=== PATIENT | female | born 1995 | race Caucasian/White ===

== ENCOUNTER 2018-06-13 21:11 | Emergency (ER) | payer OTHER ==
[2018-06-13 21:31] VITALS: BP 115/72; PULSE 89; TEMP 99.5; BMI 21.7
--- NOTE | 2018-06-13 21:31 | PDOC ---
Rapid Medical Evaluation Time Seen by Provider: 06/13/18 21:25 Medical Evaluation: 06/13/18 21:25 I have performed a brief in-person evaluation of this patient. The patient presents with a chief complaint of:R eyelid redness and swelling x 3 days, no trauma/bite Pertinent physical exam findings: Sty to lower lid of R eye w/ purulent drainage , erythema extending to criselda-orbital area I have ordered the following:nothing The patient will proceed to the ED for further evaluation. Discharge Disposition - Diagnosis Sty Qualifiers: Laterality: right Eyelid: lower Qualified Code(s): H00.012 - Hordeolum externum right lower eyelid - Referrals - Patient Instructions - Post Discharge Activity
--- NOTE | 2018-06-13 21:49 | PDOC ---
History of Present Illness - General Chief Complaint: Eye Problem Stated Complaint: EYE PROBLEM Time Seen by Provider: 06/13/18 21:25 History Source: Patient Exam Limitations: No Limitations - History of Present Illness Initial Comments: 06/13/18 21:41 23 yr female no pmhx with stye to right lower lid for 3 days draining today now redness under the eyelid. no fever no eye pain or vision change. Pt is 34 weeks no abd pain. 06/13/18 22:22 Past History - Past Medical History Allergies/Adverse Reactions: Allergies Allergy/AdvReac Type Severity Reaction Status Date / Time No Known Allergies Allergy Verified 06/13/18 21:28 Home Medications: Ambulatory Orders Cephalexin [Keflex] 500 mg PO BID #14 capsule 06/13/18 Docosahexanoic Acid [ Dha] 200 mg PO DAILY 06/13/18 Erythromycin 0.5% Eye Ointment [Erythromycin 0.5% Eye Ointment -] 1 applic OS QID #1 tube 06/13/18 COPD: No Other medical history: Pt denies - Suicide/Smoking/Psychosocial Hx Smoking History: Never smoked Have you smoked in the past 12 months: No Information on smoking cessation initiated: No Hx Alcohol Use: No Drug/Substance Use Hx: No Substance Use Type: None Review of Systems - Review of Systems Able to Perform ROS?: Yes Is the patient limited Frisian proficient: Yes HEENTM: Yes: Symptoms Reported *Physical Exam - Vital Signs Last Vital Signs Temp Pulse Resp BP Pulse Ox 99.5 F 89 18 115/72 98 06/13/18 21:29 06/13/18 21:29 06/13/18 21:29 06/13/18 21:29 06/13/18 21:29 - Physical Exam General Appearance: Yes: Nourished, Appropriately Dressed HEENT: positive: EOMI, EARLENE, TMs Normal, Pharynx Normal, Other (right lower lid with stye draining pus, surrounding erythema under the eye , neg periorbital tenderness or swelling ) Medical Decision Making - Medical Decision Making 06/13/18 21:42 cc: stye to lower lid will give po antibiotics and erythromycin ointment follow up in 48hrs for re-evaluation frequent warm compresses to the lid pt agrees with plan dc inst given via spanish speaking babysitter 06/13/18 21:43 *DC/Admit/Observation/Transfer Diagnosis at time of Disposition: Sty Qualifiers: Laterality: right Eyelid: lower Qualified Code(s): H00.012 - Hordeolum externum right lower eyelid - Discharge Dispostion Disposition: HOME Condition at time of disposition: Good - Prescriptions Prescriptions: Cephalexin [Keflex] 500 mg PO BID #14 capsule Erythromycin 0.5% Eye Ointment [Erythromycin 0.5% Eye Ointment -] 1 applic OS QID #1 tube - Referrals Referrals: Chris Cardona MD [Staff Physician] - - Patient Instructions Printed Discharge Instructions: DI for Hordeolum Additional Instructions: warm compresses to the eyelid every 2hrs for 15 minutes apply the eye ointment four times a day take the keflex as directed for 7 days return in 2 days on Saturday for a follow up visit compresas tibias en el prpado cada 2 horas darline 15 minutos aplicar la crema para los ojos cuatro veces al da cydney el Keflex jono se indica darline 7 wilkinson regresar en 2 wilkinson el silva para jyoti visita de seguimiento Print Language: BELIZEAN - Post Discharge Activity
[2018-06-13] MEDS ORDERED: ERYTHROMYCIN 0.5% OPHTHALMIC OINTMENT 3.5 GM TUBE OS ONE (21:52)
[2018-06-13] MEDS ORDERED: ERYTHROMYCIN 0.5% OPHTHALMIC OINTMENT 3.5 GM TUBE ONE (21:56)
== END 2018-06-13 22:29 | disposition home or self-care (01) ==
LOC: JERFT 21:11
DX: H00.012 Hordeolum externum right lower eyelid (principal)
CPT/HCPCS: 99281-25

== ENCOUNTER 2018-06-15 18:32 | Emergency (ER) | payer OTHER ==
[2018-06-15 18:37] VITALS: BP 109/69; PULSE 99; TEMP 98; BMI 20.5
--- NOTE | 2018-06-15 18:49 | PDOC ---
History of Present Illness - General Chief Complaint: Eye Problem Stated Complaint: EYE PAIN Time Seen by Provider: 06/15/18 18:38 History Source: Patient Exam Limitations: No Limitations - History of Present Illness Initial Comments: 06/15/18 18:44 23 yr female here for wound check of stye to the right lower lid. pt taking keflex and using erythromycin ointment. pt states symptoms have improved. Past History - Past Medical History Allergies/Adverse Reactions: Allergies Allergy/AdvReac Type Severity Reaction Status Date / Time No Known Allergies Allergy Verified 06/15/18 18:37 Home Medications: Ambulatory Orders Cephalexin [Keflex] 500 mg PO BID #14 capsule 06/13/18 Docosahexanoic Acid [ Dha] 200 mg PO DAILY 06/13/18 Erythromycin 0.5% Eye Ointment [Erythromycin 0.5% Eye Ointment -] 1 applic OS QID #1 tube 06/13/18 COPD: No - Suicide/Smoking/Psychosocial Hx Smoking History: Never smoked Have you smoked in the past 12 months: No Hx Alcohol Use: No Drug/Substance Use Hx: No Substance Use Type: None Review of Systems - Review of Systems Able to Perform ROS?: Yes Is the patient limited Tamazight proficient: Yes Constitutional: No: Symptoms Reported HEENTM: Yes: See HPI *Physical Exam - Vital Signs Last Vital Signs Temp Pulse Resp BP Pulse Ox 98 F 99 H 18 109/69 99 06/15/18 18:34 06/15/18 18:34 06/15/18 18:34 06/15/18 18:34 06/15/18 18:34 - Physical Exam General Appearance: Yes: Nourished, Appropriately Dressed HEENT: positive: EOMI, EARLENE, Other (right lower lid with small pimple to the inner corner lower lid, well healed no redness no drainage) Medical Decision Making - Medical Decision Making 06/15/18 18:47 cc: improving periorbital cellulitus with stye no fever no abd pain tolerating meds well dc home continue the plan of care *DC/Admit/Observation/Transfer Diagnosis at time of Disposition: Sty Qualifiers: Laterality: right Eyelid: lower Qualified Code(s): H00.012 - Hordeolum externum right lower eyelid - Discharge Dispostion Disposition: HOME Condition at time of disposition: Good - Referrals - Patient Instructions Additional Instructions: continue the medication as directed, finish all the medication continue warm compresses to the area, the area is looking much better return to ER as needed continuar la medicacin segn las indicaciones, terminar toda la medicacin Continuar con compresas tibias en el nadine, el nadine se ve mucho mejor regresar a ER segn sea necesario - Post Discharge Activity
== END 2018-06-15 18:54 | disposition home or self-care (01) ==
LOC: JERFT 18:32
DX: H00.012 Hordeolum externum right lower eyelid (principal)
CPT/HCPCS: 99281-25

== ENCOUNTER 2018-07-11 18:25 | Inpatient (IN) | payer OTHER ==
[2018-07-11 20:30] LABS: INR 0.9 (0.83-1.09); PROTHROMBIN TIME (PATIENT) 10.6 SEC (9.7-13.0)
[2018-07-11 20:33] LABS: ACTIVATED PTT 30.2 SECONDS (25.2-36.5)
[2018-07-11 20:38] LABS: ANION GAP 9 MMOL/L (8-16); BLOOD UREA NITROGEN 9 mg/dL (7-18); CALCIUM 8.8 mg/dL (8.5-10.1); CHLORIDE 107 mmol/L (98-107); CO2 21 mmol/L (21-32); CREATININE 0.4 mg/dL (0.55-1.3); GLUCOSE,RANDOM 146 mg/dL (74-106); POTASSIUM 3.5 mmol/L (3.5-5.1); SODIUM 137 mmol/L (136-145)
[2018-07-11 21:07] VITALS: BMI 24.0
[2018-07-11] MEDS ORDERED: ELECTROLYTE-148 SOLN 500 ML IV ONE (21:50)
[2018-07-11] MEDS ORDERED: BUPIVACAINE HCL/PF 0.5% (5MG/ML) 10 ML VIAL ONE (21:56)
[2018-07-11 22:00] LABS: BASO % 0.2 % (0-2.0); EOS % 0.6 % (0-4.5); HEMATOCRIT 32.8 % (32.4-45.2); HEMOGLOBIN 11.3 GM/dL (10.7-15.3); LYMPH % 23.6 % (8-40); MCH 32.7 pg (25.7-33.7); MCHC 34.5 g/dl (32.0-36.0); MEAN CELL VOLUME 94.8 fl (80-96); MEAN PLT VOLUME 11.6 fl (7.5-11.1); NEUT % 70.6 % (42.8-82.8); PLATELET COUNT 157 K/MM3 (134-434); RBC 3.46 M/mm3 (3.60-5.2); RDW 13.4 % (11.6-15.6); WHITE BLOOD COUNT 7.7 K/mm3 (4.0-10.0)
[2018-07-11] MEDS ORDERED: FENTANYL/BUPIVACAINE/NS/PF - PCEA - 50 ML DISP.SYRIN EP ONE (22:13)
[2018-07-11] MEDS ORDERED: NALOXONE HCL 0.4 MG/ML VIAL IVPUSH PRN (22:18)
[2018-07-11] MEDS ORDERED: ELECTROLYTE-148 SOLN 1,000 ML IV SCH (22:20)
[2018-07-11] MEDS ORDERED: FENTANYL/BUPIVACAINE/NS/PF - PCEA - 50 ML DISP.SYRIN EP SCH (22:30)
--- NOTE | 2018-07-11 23:33 | PN ---
Progress Note (SOAP) - Subjective History of Present Illness: doing well, now with epidural, ctx q 2-3 mins - Current Medications Current Medications: Active Medications Fentanyl/Bupivacaine/Sodium Chlor (Bupivicaine 0.125%/Fentanyl 2mcg/Ml Pcea) 0 ml EP ASDIR [facility]; Protocol Last Admin: 07/11/18 22:15 Dose: 50 ml Parenteral Electrolytes (Plasma-Lyte 148 -) 1,000 mls @ 125 mls/hr IV ASDIR ANGUS Last Admin: 07/11/18 20:30 Dose: 125 mls/hr Naloxone HCl (Narcan -) 0.4 mg IVPUSH PRN PRN PRN Reason: Sedation - Objective Vital Signs: Vital Signs Temperature 98.2 F 07/11/18 22:00 Pulse Rate 80 07/11/18 22:45 Respiratory Rate 18 07/11/18 22:45 Blood Pressure 117/75 07/11/18 22:45 O2 Sat by Pulse Oximetry (%) 98 07/11/18 22:45 Constitutional: Yes: Well Nourished Eyes: Yes: WNL HENT: Yes: WNL Neck: Yes: WNL Cardiovascular: Yes: WNL Respiratory: Yes: WNL Gastrointestinal: Yes: WNL ...Rectal Exam: Yes: WNL Labs Lab Results: CBC, BMP 07/11/18 19:45 07/11/18 19:45 Assessment/Plan as above 4-5 cm/90/0 station cat 1 continue care
[2018-07-12] MEDS ORDERED: OXYTOCIN 20 UNITS in 0.9% NS 20 UNIT/1,000 ML INFUS.BAG IV ONE ×2 (01:10→03:43)
--- NOTE | 2018-07-12 02:04 | HP ---
Admitting History and Physical - Admission Chief Complaint: labor pains History of Present Illness: as above--comes at 37 weeks with srom today, start of ctx History Source: Patient - Past Medical History MEDIA INTERN: No: Alzheimer's, CVA, Dementia, Migraine, Multiple Sclerosis, Peripheral Neuropathy, Parkinson's, Seizure, Syncope, TIA, Vertigo, Other Cardiovascular: No: AFIB, Aneurysm, Aortic Insufficiency, Aortic Stenosis, CAD, CHF, Deep Vein Thrombosis, HTN, Hyperlipdemia, VA, Mitral Insufficiency, Mitral Stenosis, Murmur, Pulmonary Hypertension, Other Pulmonary: No: Asthma, Bronchitis, Cancer, COPD, O2 Dependent, Pneumonia, Previously Intubated, Pulmonary Embolus, Pulmonary Fibrosis, Sleep Apnea, Other Gastrointestinal: No: Ascites, Cancer, Constipation, Crohn's Disease, Diverticulitis, Diverticulosis, Esophageal Varices, Gastritis, GERD, GI Bleed, Hemorrhoids, Hiatal Hernia, Inflamatory Bowel Disease, Irritable Bowel Disease, Pancreatitis, Peptic Ulcer Disease, Ulcerative Colitis, Other Hepatobiliary: No: Cirrhosis, Cholelithiasis, Cholecystitis, Choledocholithiasis , Hepatitis A, Hepatitis B, Hepatitis C, Other Renal/: No: Renal Failure, Renal Inusuff, BPH, Cancer, Hematuria, Hemodialysis , Neurogenic Bladder, Renal Calculi, UTI, Other Reproductive: No: Ectopic , Endometriosis, Fibroids, PID, Polycystic Ovary Syndrome, Postmenopausal, Other ...: 1 ...Para: 0 Heme/Onc: No: Anemia, B12 Deficiency, Bleeding Disorder, Cancer, Current Chemotherapy, Current Radiation Therapy, Hemochromatosis, Hypercoaguable State, Myeloproliferative Synd, Sickle Cell Disease, Sickle Cell Trait, Thrombocytopenia, Other Infectious Disease: No: AIDS, C-Diff, Herpes Zoster, HIV, MRSA, STD's, Tuberculosis, VREF, Other - Smoking History Smoking history: Never smoked Have you smoked in the past 12 months: No - Alcohol/Substance Use Hx Alcohol Use: No Home Medications - Allergies Allergies/Adverse Reactions: Allergies Allergy/AdvReac Type Severity Reaction Status Date / Time No Known Allergies Allergy Verified 06/15/18 18:37 - Home Medications Home Medications: Ambulatory Orders Cephalexin [Keflex] 500 mg PO BID #14 capsule 06/13/18 Docosahexanoic Acid [ Dha] 200 mg PO DAILY 06/13/18 Erythromycin 0.5% Eye Ointment [Erythromycin 0.5% Eye Ointment -] 1 applic OS QID #1 tube 06/13/18 Review of Systems - Review of Systems Constitutional: reports: No Symptoms Eyes: reports: No Symptoms HENT: reports: No Symptoms Neck: reports: No Symptoms Cardiovascular: reports: No Symptoms Respiratory: reports: No Symptoms Gastrointestinal: reports: No Symptoms Genitourinary: reports: No Symptoms Musculoskeletal: reports: No Symptoms Integumentary: reports: No Symptoms Neurological: reports: No Symptoms Endocrine: reports: No Symptoms Hematology/Lymphatic: reports: No Symptoms Psychiatric: reports: No Symptoms Physical Examination Vital Signs: Vital Signs Temperature 98.6 F 07/12/18 00:00 Pulse Rate 77 07/12/18 01:15 Respiratory Rate 18 07/12/18 01:15 Blood Pressure 117/75 07/12/18 01:15 O2 Sat by Pulse Oximetry (%) 97 07/12/18 01:15 Constitutional: Yes: Well Nourished Eyes: Yes: WNL HENT: Yes: WNL Neck: Yes: WNL Cardiovascular: Yes: WNL Respiratory: Yes: WNL Gastrointestinal: Yes: WNL ...Rectal Exam: Yes: WNL, Other Renal/: Yes: WNL Breast(s): Yes: WNL Extremities: Yes: WNL Integumentary: Yes: WNL Neurological: Yes: WNL Labs: CBC, BMP 07/11/18 19:45 07/11/18 19:45 Assessment/Plan as above pain meds prn will follow labor
[2018-07-12] MEDS ORDERED: BISACODYL 10 MG SUPP.RECT RC PRN (02:24)
[2018-07-12] MEDS ORDERED: BENZOCAINE 28 GM HEMORRHOIDAL OINTMENT TP PRN (02:24)
[2018-07-12] MEDS ORDERED: BENZOCAINE 20% 57 GM BOTTLE TP PRN (02:24)
[2018-07-12] MEDS ORDERED: METHYLERGONOVINE MALEATE 0.2 MG/1 ML AMP IM PRN (02:24)
[2018-07-12] MEDS ORDERED: WITCH HAZEL 50% (TUCKS) 40 PAD/JAR PAD TP PRN (02:24)
[2018-07-12] MEDS ORDERED: OXYTOCIN 20 UNITS in 0.9% NS 20 UNIT/1,000 ML INFUS.BAG IV SCH (02:30)
[2018-07-12] MEDS: IBUPROFEN 600 MG TABLET (FP) PO PRN ×2 (16:26→21:24)
[2018-07-12] MEDS: ACETAMINOPHEN 325 MG TABLET (FP) PO PRN ×2 (16:27→21:24)
[2018-07-13 07:25] LABS: BASO % 0.4 % (0-2.0); EOS % 1.1 % (0-4.5); HEMATOCRIT 33.3 % (32.4-45.2); HEMOGLOBIN 11.5 GM/dL (10.7-15.3); LYMPH % 23.3 % (8-40); MCH 32.7 pg (25.7-33.7); MCHC 34.5 g/dl (32.0-36.0); MEAN CELL VOLUME 94.6 fl (80-96); MONO % 7.2 % (3.8-10.2); PLATELET COUNT 125 K/MM3 (134-434); RBC 3.52 M/mm3 (3.60-5.2); RDW 13.4 % (11.6-15.6); WHITE BLOOD COUNT 10.2 K/mm3 (4.0-10.0)
[2018-07-13] MEDS ORDERED: DIPHTH,PERTUSS(ACELL),TET 0.5 ML DISP.SYRIN IM ONE (10:00)
--- NOTE | 2018-07-13 16:56 | PN ---
Post Progress Note Post Day: 1 Type of Delivery: Vital Signs: Vital Signs Temperature 98.0 F 07/12/18 21:00 Pulse Rate 71 07/12/18 21:00 Respiratory Rate 18 07/12/18 21:00 Blood Pressure 113/64 07/12/18 21:00 O2 Sat by Pulse Oximetry (%) 100 07/12/18 03:30 Uterus: Yes: Fundus Firm Abdomen/GI: Yes: Abdomen soft Lochia: Yes: Rubra Lochia, amount: Small Extremities: Yes: Calves non-tender Perineum: Yes: Intact Activity: Ambulating - Labs Labs: CBC WBC 10.2 K/mm3 (4.0-10.0) H 07/13/18 06:10 RBC 3.52 M/mm3 (3.60-5.2) L 07/13/18 06:10 Hgb 11.5 GM/dL (10.7-15.3) 07/13/18 06:10 Hct 33.3 % (32.4-45.2) 07/13/18 06:10 MCV 94.6 fl (80-96) 07/13/18 06:10 MCH 32.7 pg (25.7-33.7) 07/13/18 06:10 MCHC 34.5 g/dl (32.0-36.0) 07/13/18 06:10 RDW 13.4 % (11.6-15.6) 07/13/18 06:10 Plt Count 125 K/MM3 (134-434) L D 07/13/18 06:10 MPV 10.0 fl (7.5-11.1) D 07/13/18 06:10 Absolute Neuts (auto) 6.9 K/mm3 (1.5-8.0) 07/13/18 06:10 Neutrophils % 68.0 % (42.8-82.8) 07/13/18 06:10 Lymphocytes % 23.3 % (8-40) 07/13/18 06:10 Monocytes % 7.2 % (3.8-10.2) 07/13/18 06:10 Eosinophils % 1.1 % (0-4.5) D 07/13/18 06:10 Basophils % 0.4 % (0-2.0) 07/13/18 06:10 Nucleated RBC % 0 % (0-0) 07/13/18 06:10 Assessment/Plan as above continue care oob reg diet
[2018-07-13] MEDS: ACETAMINOPHEN 325 MG TABLET (FP) PO PRN (20:06)
[2018-07-13] MEDS: IBUPROFEN 600 MG TABLET (FP) PO PRN (20:07)
[2018-07-13] MEDS ORDERED: SENNOSIDES/DOCUSATE COMBO (SENNA PLUS) TABLET (UD) PO PRN (22:00)
[2018-07-14 07:45] VITALS: BP 112/65; PULSE 69; TEMP 98.8
== END 2018-07-14 13:40 | disposition home or self-care (01) | DRG 560 ==
LOC: JLDR 18:25 → J3W 07-12 03:56
PROVIDERS: ADMIT Obstetrics & Gynecology; ATTEND Obstetrics & Gynecology
PROC: 10E0XZZ Delivery of Products of Conception, External Approach (ICD-10-PCS; principal; 2018-07-12)
DX: O80 Encounter for full-term uncomplicated delivery (principal); Z3A.37 37 weeks gestation of pregnancy; Z37.0 Single live birth
CPT/HCPCS: 36415; 59409; 80048; 85025; 85610; 85730; 86593; 86850; 86900; 86901; 90686; 90715; G0008

== ENCOUNTER 2018-07-15 16:31 | Emergency (ER) | payer OTHER ==
--- NOTE | 2018-07-15 16:50 | PDOC ---
Rapid Medical Evaluation Time Seen by Provider: 07/15/18 16:46 Medical Evaluation: Allergies Allergy/AdvReac Type Severity Reaction Status Date / Time No Known Allergies Allergy Verified 06/15/18 18:37 10 16:46 I have performed a brief in-person evaluation of this patient. The patient presents with a chief complaint of: abdominal pain and vomiting since this am. Patient 4 days , discharged yesterday from [facility] Denies diarrhea or headache Pertinent physical exam findings are: appears uncomfortable tender abdomen even and unlabored breathing I have ordered the following: iv access, labs, The patient will proceed to the ED for further evaluation.
[2018-07-15 16:51] VITALS: BMI 21.0
[2018-07-15] MEDS ORDERED: ACETAMINOPHEN 325 MG TABLET (FP) PO ONE (16:55)
[2018-07-15] MEDS ORDERED: ONDANSETRON *ODT* 4 MG TABLET SL ONE (17:22)
[2018-07-15] MEDS ORDERED: ONDANSETRON *ODT* 4 MG TABLET ONE (17:43)
[2018-07-15] MEDS ORDERED: ACETAMINOPHEN 325 MG TABLET (FP) ONE (17:43)
--- NOTE | 2018-07-15 18:15 | PDOC ---
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 Pt having multiple episodes of vomit. cannot hold PO down. has not tried taking anything for pain. also endorses non radiating pressure like chest pain. Pt has had some vaginal bleeding from vagina. pt says and delivery were uncomplicated. Denies fevers, chills, sob, urinary sxs, diarrhea, blood in stools, blood in vomit, recent travel, sick contacts, body aches, joint pain. SH: denies smoke etoh drug med: none PMH/PSH: none <Sergey Balderrama - Last Filed: 07/15/18 19:45> <Nava Walter - Last Filed: 07/16/18 00:12> - General Chief Complaint: Nausea/Vomiting Stated Complaint: ABDOMINAL PAIN, VOMITING Time Seen by Provider: 07/15/18 16:46 Past History - Past Medical History Asthma: No Cancer: No Cardiac Disorders: No COPD: No Diabetes: No HTN: No Seizures: No Thyroid Disease: No - Suicide/Smoking/Psychosocial Hx Smoking History: Never smoked Have you smoked in the past 12 months: No Hx Alcohol Use: No Drug/Substance Use Hx: No Substance Use Type: None Hx Substance Use Treatment: No <Sergey Balderrama - Last Filed: 07/15/18 19:45> <Nava Walter - Last Filed: 07/16/18 00:12> - Past Medical History Allergies/Adverse Reactions: Allergies Allergy/AdvReac Type Severity Reaction Status Date / Time No Known Allergies Allergy Verified 07/15/18 16:48 Home Medications: Ambulatory Orders Cephalexin [Keflex] 500 mg PO BID #14 capsule 06/13/18 Docosahexanoic Acid [ Dha] 200 mg PO DAILY 06/13/18 Erythromycin 0.5% Eye Ointment [Erythromycin 0.5% Eye Ointment -] 1 applic OS QID #1 tube 06/13/18 Cephalexin Monohydrate [Keflex -] 500 mg PO Q8H #21 capsule 07/16/18 Review of Systems - Review of Systems Constitutional: Yes: See HPI HEENTM: Yes: See HPI Respiratory: Yes: See HPI Cardiac (ROS): Yes: See HPI ABD/GI: Yes: See HPI : Yes: See HPI Musculoskeletal: Yes: See HPI Integumentary: Yes: See HPI Neurological: Yes: See HPI Endocrine: Yes: See HPI Hematologic/Lymphatic: Yes: See HPI <Sergey Balderrama - Last Filed: 07/15/18 19:45> *Physical Exam - Vital Signs Last Vital Signs Temp Pulse Resp BP Pulse Ox 100 F H 114 H 16 125/68 99 07/15/18 16:48 07/15/18 16:48 07/15/18 16:48 07/15/18 16:48 07/15/18 16:48 - Physical Exam Comments: 07/15/18 18:30 General: Well-nourished, mild distress HEENT: NCAT, MMM Neck: supple. no lymphadenopathy Respiratory: CTAB cardio: tachycardia, RR S1 S2 no m/r/g. TTP LIZBETH sternal border Abdomen: +BS , soft, ND generalized TTP. no rebound Extremities: radial 2+ b/l. Warm, dry, no cyanosis, edema, clubbing or calf tenderness. Skin: intact. no rashes Neuro: Alert and oriented x3, strength sensation grossly intact. Psych: Normal mood and affect <Sergey Balderrama - Last Filed: 07/15/18 19:45> - Vital Signs Last Vital Signs Temp Pulse Resp BP Pulse Ox 97.4 F L 87 17 110/64 97 07/15/18 19:45 07/15/18 19:45 07/15/18 19:45 07/15/18 19:45 07/15/18 19:45 <Nava Walter - Last Filed: 07/16/18 00:12> ED Treatment Course - LABORATORY CBC & Chemistry Diagram: 07/15/18 18:36 07/15/18 18:36 <Sergey Balderrama - Last Filed: 07/15/18 19:45> - LABORATORY CBC & Chemistry Diagram: 07/15/18 18:36 07/15/18 18:36 - ADDITIONAL ORDERS Additional order review: Laboratory Results 07/15/18 07/15/18 07/15/18 21:50 20:10 18:36 Sodium Potassium Chloride Carbon Dioxide Anion Gap BUN Creatinine Creat Clearance w eGFR Random Glucose Calcium Total Bilirubin AST ALT Alkaline Phosphatase Troponin I < 0.02 Total Protein Albumin Urine Color Judit Urine Appearance Slcloudy Urine pH 5.0 Ur Specific [place] 1.035 Urine Protein 2+ H Urine Glucose (UA) Negative Urine Ketones 2+ H Urine Blood 2+ H Urine Nitrite Negative Urine Bilirubin Negative Urine Urobilinogen 2.0 H Ur Leukocyte Esterase 1+ H Urine WBC (Auto) 16 Urine RBC (Auto) 17 Ur Epithelial Cells Rare Urine Mucus Many Blood Type O POSITIVE Antibody Screen Negative 07/15/18 18:36 Sodium 138 Potassium 3.8 Chloride 105 Carbon Dioxide 21 Anion Gap 11 BUN 16 Creatinine 0.5 L Creat Clearance w eGFR > 60 Random Glucose 83 Calcium 9.4 Total Bilirubin 0.5 AST 59 H ALT 73 H Alkaline Phosphatase 113 Troponin I Total Protein 7.7 Albumin 3.0 L Urine Color Urine Appearance Urine pH Ur Specific [place] Urine Protein Urine Glucose (UA) Urine Ketones Urine Blood Urine Nitrite Urine Bilirubin Urine Urobilinogen Ur Leukocyte Esterase Urine WBC (Auto) Urine RBC (Auto) Ur Epithelial Cells Urine Mucus Blood Type Antibody Screen 07/15/18 18:36 RBC 3.83 MCV 95.5 MCHC 32.8 RDW 13.3 MPV 10.2 Neutrophils % 85.1 H D Lymphocytes % 9.3 D Monocytes % 4.6 Eosinophils % 0.8 Basophils % 0.2 - RADIOLOGY Radiology Studies Ordered: Category Date Time Status CHEST PA & LAT [RAD] Stat Radiology 07/15/18 18:22 Completed ABDOMEN US -LIMITED [US] Stat Ultrasound 07/15/18 18:23 Completed - Medications Given in the ED: ED Medications Discontinued Medications Generic Name Dose Route Start Last Admin Trade Name Freq PRN Reason Stop Dose Admin Acetaminophen 650 mg 07/15/18 16:55 07/15/18 18:50 Tylenol - PO 07/15/18 16:56 650 mg ONCE ONE Administration Famotidine/Sodium Chloride 20 mg in 50 mls @ 100 mls/hr 07/15/18 21:50 22:50 Pepcid 20 Mg Premixed Ivpb - IVPB 07/15/18 22:19 100 mls/hr ONCE ONE Administration Ampicillin Sodium/Sulbactam 100 mls @ 200 mls/hr 07/15/18 22:09 07/15/18 22: 50 Sodium 3 gm/ Sodium Chloride IVPB 07/15/18 22:38 Not Given ONCE ONE Doxycycline Hyclate 100 mg/ 100 mls @ 100 mls/hr 07/15/18 22:10 07/15/18 22: 10 Dextrose IVPB 07/15/18 23:09 Not Given ONCE ONE Ondansetron HCl 4 mg 07/15/18 17:22 07/15/18 18:51 Zofran Odt - SL 07/15/18 17:23 4 mg ONCE ONE Administration Sodium Chloride 1,000 ml 07/15/18 18:24 07/15/18 18:51 Normal Saline - IV 07/15/18 18:25 1,000 ml ONCE ONE Administration <Nava Walter - Last Filed: 07/16/18 00:12> Medical Decision Making - Medical Decision Making 07/15/18 18:31 23 yo F w/ no sig PMH, presents 4 days w/ n/v, and generalized burning abd pain x3d febrile 100, tachycardia -CBC, CMP, Lactic, EKG, trop, UA, Ucx, CXR, bcx -abd u/s -IVF bolus -IV zofran tylenol 07/15/18 19:15 leukocytosis 11 f/u labs, UA, cultures EKG NSR 80s, no ST-T wave changes monitor vitals pt may require pelvic exam signed out to Dr. Renae <Sergey Balderrama - Last Filed: 07/15/18 19:45> *DC/Admit/Observation/Transfer <Sergey Balderrama - Last Filed: 07/15/18 19:45> <Nava Walter - Last Filed: 07/16/18 00:12> Diagnosis at time of Disposition: Fever, Abdominal pain, UTI (urinary tract infection), Breast engorgement - Discharge Dispostion Disposition: HOME Condition at time of disposition: Improved - Prescriptions Prescriptions: Cephalexin Monohydrate [Keflex -] 500 mg PO Q8H #21 capsule - Referrals Referrals: Carmela Mcghee MD [Staff Physician] - Angel Luis Yao MD [Staff Physician] - - Patient Instructions Printed Discharge Instructions: Diet, DI for Urinary Tract Infection (UTI), DI for Abdominal Pain-Adult, DI for Vaginal Bleeding, DI for Vaginal Discharge Additional Instructions: you had low grade fever and abdominal pain today. your urine shows signs of infection, but you were also bleeding. follow up on your urine cultures ultrasound was normal. the rest of your blood work also normal, results provided. you feel much better with the treatment take keflex three times a day, an antibiotic for your urinary tract infection as well as possible infection. warm compresses to your breast 4 times a day, continue breast feeding your child. your breast can be swollen and cause inflammation and low grade fevers, which can be expected. tylenol for pain control every 6 hours as needed. stay well hydrated. follow up with obstetrics, Dr Mcghee and Dr. Yao provided. follow up for repeat pelvic exam, as findings today are more consistent with post and delivery state/ Tenas fiebre baja y dolor abdominal hoy. Muñoz orina muestra signos de infeccin, alexis tambin estaba sangrando. seguimiento a amanda cultivos de orina La ecografa era normal. El shay de muñoz anlisis de jhonny tambin es normal, resultados proporcionados. te sientes mucho mejor con el tratamiento tome keflex jennifer veces al da, un antibitico para la infeccin del tracto urinario y jyoti posible infeccin. Compresas tibias en el pecho 4 veces al da, contine amamantando a muñoz hijo. muñoz seno puede estar inflamado y causar inflamacin y fiebres de bajo arie, lo que puede esperarse. Tylenol para controlar el dolor cada 6 horas segn sea necesario. Mantente linus hidratado. seguimiento con obstetricia, Dr. Mcghee y Dr. Yao proporcionados. seguimiento para repetir el examen plvico, ya que los hallazgos de hoy son ms consistentes con el posparto y el estado de parto Print Language: TAJIK Addendum entered and electronically signed by Sergey Balderrama, RESIDENT 19:46: Progress Note - Progress Note Progress Note: Pelvic exam: open cervix erythematous and yellow, firm, malodorous, w/ some vaginal bleeding dark maroon discharge. adnexal tenderness b/l transvag u/s
[2018-07-15] MEDS ORDERED: SODIUM CHLORIDE 0.9% 500 ML INFUS.BAG IV ONE (18:24)
[2018-07-15 18:59] LABS: BASO % 0.2 % (0-2.0); EOS % 0.8 % (0-4.5); HEMATOCRIT 36.6 % (32.4-45.2); LYMPH % 9.3 % (8-40); MCH 31.4 pg (25.7-33.7); MCHC 32.8 g/dl (32.0-36.0); MEAN CELL VOLUME 95.5 fl (80-96); MEAN PLT VOLUME 10.2 fl (7.5-11.1); MONO % 4.6 % (3.8-10.2); NEUT % 85.1 % (42.8-82.8); PLATELET COUNT 178 K/MM3 (134-434); RBC 3.83 M/mm3 (3.60-5.2); RDW 13.3 % (11.6-15.6); WHITE BLOOD COUNT 11.6 K/mm3 (4.0-10.0)
[2018-07-15 19:25] LABS: ALK PHOS 113 U/L (45-117); ANION GAP 11 MMOL/L (8-16); BILIRUBIN,TOTAL 0.5 mg/dL (0.2-1); BLOOD UREA NITROGEN 16 mg/dL (7-18); CALCIUM 9.4 mg/dL (8.5-10.1); CHLORIDE 105 mmol/L (98-107); CO2 21 mmol/L (21-32); CREATININE 0.5 mg/dL (0.55-1.3); GLUCOSE,RANDOM 83 mg/dL (74-106); POTASSIUM 3.8 mmol/L (3.5-5.1); SGOT/AST 59 U/L (15-37); SGPT/ALT 73 U/L (13-61); SODIUM 138 mmol/L (136-145); TOT PROT 7.7 g/dl (6.4-8.2)
--- NOTE | 2018-07-15 21:47 | PDOC ---
Attending Attestation - Resident Resident Name: Sergey Balderrama - ED Attending Attestation I have performed the following: I have examined & evaluated the patient, The case was reviewed & discussed with the resident, I agree w/resident's findings & plan - HPI HPI: 07/15/18 21:49 23 yo F w/ no sig PMH, presents 4 days w/ n/v, and generalized burning abd pain x3d, difficulty tolerating PO intake. no urinary sx or dysuria. however +VB and discharge since by OB here ~4 days prior. low grade fever noted. interpreter translator via [employer] performed - Physicial Exam PE: 07/15/18 21:47 NAD, well appearing, MMM, nl conjunctiva, anicteric; neck supple. lungs clear, RRR, abdomen soft nontender. VALENZUELA x4, no focal neuro deficits. No peripheral edema. normal color for ethnicity, WWP. Female : normal external genitalia, no lesions, vaginal vault with maroon colored blood and discharge, +odorous, no CMT, mild BL adnexal tenderness. Smooth and erythematous cervix, soft and open. - Medical Decision Making 07/15/18 21:49 23 YOF day #4 presenting with n/v, AP and vaginal discharge DDx female abdominal pain: ovarian cyst, ovarian torsion, TOA, UTI, pyelonephritis, Mittelschmerz, endometritis, retained POC, sepsis; pancreatitis , hepatitis, biliary sludge, symptomatic cholelithiasis, cholecystitis, electrolyte/metabolic derangements vitals with tachycardia and LGF, given IVF, tylenol and zofran, Pepcid. EKG normal sinus rhythm, no interval abnormalities, narrow QRS, ST and T wave segments and morphology normal. abdomen benign. pelvic exam as documented, with blood in vault, post changes and malodorous discharge noted, sutures noted in place.. labs and lytes with mild elevation in LFTs, otherwise wnl. mild leukocytosis 11.6K. UA_blood and WBCs, will treat as UTI with keflex and f/u urine cultures. Pelvic sono neg for pathology, thickened endometrium as expected post ; normal abdominal US. - called to Dr. Yao for ED presentation and concern for endometritis in immediate PP period. called out at 1010pm, awaiting call back. - did get call back for various exceptionalities teacher doctor, Dr. Mcghee, discussed care, does not appear or sound clinically like endometritis, can be normal post . also fever can be related to breast engorgement, which she does have at bedside as she is breast feeding; denies pain or discharge. not in window or clinically appearing as sepsis or endometritis can follow up as outpatient with OB ( referrals) provided, in 1-2 days, fever control with hydration, warm compresses 4X per day, tylenol as needed; c/ w breast feeding. vitals signs on repeat normal. remains well, nontoxic appearing, agreeable to plan with consultation and follow up plan. dispo: Pt informed of my clinical impression, treatment recommendations and disposition plan. All questions answered to patient's satisfaction and expressed understanding and comfort with this. Reasons for returning to the ED sooner discussed with the patient otherwise, follow up with OB (Dr. Yao/ [facility]) provided. At the time of discharge, the patient is alert, clinically improved, tolerating po and verbalizes understanding of instructions. information provided via interpreter translator, [employer] #[id number] 07/16/18 00:11 *DC/Admit/Observation/Transfer Diagnosis at time of Disposition: Fever, Abdominal pain, UTI (urinary tract infection), Breast engorgement - Discharge Dispostion Disposition: HOME Condition at time of disposition: Improved Decision to Admit order: No - Prescriptions Prescriptions: Cephalexin Monohydrate [Keflex -] 500 mg PO Q8H #21 capsule - Referrals Referrals: Carmela Mcghee MD [Staff Physician] - Angel Luis Yao MD [Staff Physician] - - Patient Instructions Printed Discharge Instructions: DI for Abdominal Pain-Adult, DI for Urinary Tract Infection (UTI), DI for Vaginal Discharge, DI for Vaginal Bleeding, Diet Additional Instructions: you had low grade fever and abdominal pain today. your urine shows signs of infection, but you were also bleeding. follow up on your urine cultures ultrasound was normal. the rest of your blood work also normal, results provided. you feel much better with the treatment take keflex three times a day, an antibiotic for your urinary tract infection as well as possible infection. warm compresses to your breast 4 times a day, continue breast feeding your child. your breast can be swollen and cause inflammation and low grade fevers, which can be expected. tylenol for pain control every 6 hours as needed. stay well hydrated. follow up with obstetrics, Dr Mcghee and Dr. Yao provided. follow up for repeat pelvic exam, as findings today are more consistent with post and delivery state/ Tenas fiebre baja y dolor abdominal hoy. Muñoz orina muestra signos de infeccin, alexis tambin estaba sangrando. seguimiento a amanda cultivos de orina La ecografa era normal. El shay de muñoz anlisis de jhonny tambin es normal, resultados proporcionados. te sientes mucho mejor con el tratamiento tome keflex jennifer veces al da, un antibitico para la infeccin del tracto urinario y jyoti posible infeccin. Compresas tibias en el pecho 4 veces al da, contine amamantando a muñoz hijo. muñoz seno puede estar inflamado y causar inflamacin y fiebres de bajo arie, lo que puede esperarse. Tylenol para controlar el dolor cada 6 horas segn sea necesario. Mantente linus hidratado. seguimiento con obstetricia, Dr. Mcghee y Dr. Yao proporcionados. seguimiento para repetir el examen plvico, ya que los hallazgos de hoy son ms consistentes con el posparto y el estado de parto Print Language: INDONESIAN - Post Discharge Activity Heart Score/ECG Review - ECG Impressions Normal ECG: Yes Comment:: 07/15/18 22:07 EKG normal sinus rhythm, no interval abnormalities, narrow QRS, ST and T wave segments and morphology normal.
[2018-07-15] MEDS ORDERED: FAMOTIDINE 20 MG/50 ML IVPB 20 MG/50 ML MG IVPB ONE ×2 (21:50→23:03)
[2018-07-15] MEDS ORDERED: AMPICILLIN NA/SULBACTAM NA 3 GM in SODIUM CHLORIDE 100 ML IVPB ONE (22:09)
[2018-07-15] MEDS ORDERED: DOXYCYCLINE INJECTION 100 MG in DEXTROSE 5%-WATER - 100 ML IVPB ONE (22:10)
[2018-07-15] MEDS ORDERED: DOXYCYCLINE HYCLATE 100 MG VIAL ONE (23:02)
[2018-07-15 23:27] LABS: URINE APPEARANCE SLCLOUDY; URINE BILIRUBIN NEGATIVE (<2.0 mg/dL); URINE COLOR AMBER; URINE GLUCOSE (UA) NEGATIVE (NEGATIVE); URINE KETONE 2+ (NEGATIVE); URINE LEUK ESTERASE 1+ (NEGATIVE); URINE NITRITE NEGATIVE (NEGATIVE); URINE PROTEIN 2+ (NEGATIVE)
[2018-07-15 23:33] LABS: EPI CELLS RARE /HPF (FEW); URINE MUCUS MANY
[2018-07-16] MEDS ORDERED: CEPHALEXIN MONOHYDRATE 500 MG CAPSULE (UD) PO ONE (00:04)
[2018-07-16] MEDS ORDERED: CEPHALEXIN MONOHYDRATE 500 MG CAPSULE (UD) ONE (00:17)
[2018-07-16 00:49] VITALS: BP 114/68; PULSE 86; TEMP 97.8
--- NOTE | 2018-07-16 10:23 | EKG ---
Test Reason : Blood Pressure : / mmHG Vent. Rate : 085 BPM Atrial Rate : 085 BPM P-R Int : 136 ms QRS Dur : 086 ms QT Int : 346 ms P-R-T Axes : 048 048 050 degrees QTc Int : 411 ms NORMAL SINUS RHYTHM NORMAL ECG NO PREVIOUS ECGS AVAILABLE Confirmed by QUIQUE MIDDLETON, SARAH ([id number]) on 07/16/2018 10:22:44 AM Referred By: Confirmed By:SARAH LEI MD
== END 2018-07-16 00:18 | disposition home or self-care (01) ==
LOC: JER 16:31
PROC: 3E033GC Introduction of Other Therapeutic Substance into Peripheral Vein, Percutaneous Approach (ICD-10-PCS; principal; 2018-07-15)
DX: O86.20 Urinary tract infection following delivery, unspecified (principal); O92.79 Other disorders of lactation; O86.4 Pyrexia of unknown origin following delivery
CPT/HCPCS: 36415; 71046-TC-FY; 76705-TC; 76856-TC; 80053; 81003; 81015; 84484; 85025; 86850; 86900; 86901; 87040; 87086; 93005; 93010; 96365; 99285-25; Q0162

== ENCOUNTER 2018-10-13 02:27 | Emergency (ER) | payer OTHER ==
--- NOTE | 2018-10-13 04:14 | PDOC ---
History of Present Illness - General Stated Complaint: NECK/ARM PAIN Time Seen by Provider: 10/13/18 04:14 Past History - Past Medical History Allergies/Adverse Reactions: Allergies Allergy/AdvReac Type Severity Reaction Status Date / Time No Known Allergies Allergy Verified 07/15/18 16:48 Home Medications: Ambulatory Orders Cephalexin [Keflex] 500 mg PO BID #14 capsule 06/13/18 Docosahexanoic Acid [ Dha] 200 mg PO DAILY 06/13/18 Erythromycin 0.5% Eye Ointment [Erythromycin 0.5% Eye Ointment -] 1 applic OS QID #1 tube 06/13/18 Cephalexin Monohydrate [Keflex -] 500 mg PO Q8H #21 capsule 07/16/18 Asthma: No Cancer: No Cardiac Disorders: No COPD: No Diabetes: No HTN: No Seizures: No Thyroid Disease: No - Suicide/Smoking/Psychosocial Hx Smoking History: Never smoked Have you smoked in the past 12 months: No Hx Alcohol Use: No Drug/Substance Use Hx: No Substance Use Type: None Hx Substance Use Treatment: No
[2018-10-13 04:15] VITALS: BP 108/69; PULSE 84; TEMP 97.9; BMI 19.4
--- NOTE | 2018-10-13 04:28 | PDOC ---
History of Present Illness - General Chief Complaint: Pain, Acute Stated Complaint: NECK/ARM PAIN Time Seen by Provider: 10/13/18 04:14 History Source: Patient Exam Limitations: No Limitations - History of Present Illness Timing/Duration: other (3 days) Severity: mild Past History - Travel Traveled outside of the country in the last 30 days: No Close contact w/someone who was outside of country & ill: No - Past Medical History Allergies/Adverse Reactions: Allergies Allergy/AdvReac Type Severity Reaction Status Date / Time No Known Allergies Allergy Verified 10/13/18 04:15 Asthma: No Cancer: No Cardiac Disorders: No COPD: No Diabetes: No HTN: No Seizures: No Thyroid Disease: No - Suicide/Smoking/Psychosocial Hx Smoking History: Never smoked Have you smoked in the past 12 months: No Information on smoking cessation initiated: No Hx Alcohol Use: No Drug/Substance Use Hx: No Substance Use Type: None Hx Substance Use Treatment: No Review of Systems - Review of Systems Constitutional: No: Symptoms Reported, See HPI, Chills, Diaphoresis, Fever, Loss of Appetite, Malaise, Night Sweats, Weakness, Weight Stable, Unintentional Wgt. Loss, Unexplained wgt Loss, Other HEENTM: No: Symptoms Reported, See HPI, Eye Pain, Blurred Vision, Tearing, Recent change in vision, Double Vision, Cataracts, Ear Pain, Ocular Prothesis, Ear Discharge, Nose Pain, Nose Congestion, Tinnitus, Nose Bleeding, Hearing Loss , Throat Pain, Throat Swelling, Mouth Pain, Dental Problems, Difficulty Swallowing, Mouth Swelling, Other Respiratory: No: Symptoms reported, See HPI, Cough, Orthopnea, Shortness of Breath, SOB with Exertion, SOB at Rest, Stridor, Wheezing, Productive cough, Hemoptysis, Other Cardiac (ROS): No: Symptoms Reported, See HPI, Chest Pain, Edema, Irregular Heart Rate, Lightheadedness, Palpitations, Syncope, Chest Tightness, Other ABD/GI: No: Symptoms Reported, See HPI, Abdominal Distended, Abd. Pain w/ defecation, Blood Streaked Bowels, Constipated, Diarrhea, Difficulty Swallowing , Nausea, Poor Appetite, Poor Fluid Intake, Rectal Bleeding, Vomiting, Indigestion, Abdominal cramping, Tarry Stools, Other : No: Symptoms Reported, See HPI, Burning, Dysuria, Discharge, Frequency, Flank Pain, Hematuria, Incontinence, Pain, Urgency, Testicular Mass, Testicular Swelling, Lesions, Testicular Pain, Other Musculoskeletal: Yes: Muscle Pain, Neck Pain. No: Back Pain, Joint Pain, Joint Swelling, Muscle Weakness, Joint Stiffness Integumentary: No: Symptoms Reported, See HPI, Bruising, Change in Color, Change in Hair/Nails, Dryness, Erythema, Flushing, Lesions, Lumps, Pallor, Pruritus, Rash, Sweating, Other Neurological: No: Symptoms reported, See HPI, Headache, Numbness, Paresthesia, Pre-Existing Deficit, Seizure, Tingling, Tremors, Weakness, Unsteady Gait, Ataxia, Dizziness, Other *Physical Exam - Vital Signs Last Vital Signs Temp Pulse Resp BP Pulse Ox 97.9 F 84 18 108/69 99 10/13/18 04:12 10/13/18 04:12 10/13/18 04:12 10/13/18 04:12 10/13/18 04:12 - Physical Exam General Appearance: Yes: Nourished, Appropriately Dressed. No: Apparent Distress HEENT: positive: EOMI, EARLENE, Normal ENT Inspection, Normal Voice, Symmetrical, TMs Normal, Pharynx Normal Neck: positive: Tender, Trachea midline, Normal Thyroid, Supple Respiratory/Chest: positive: Lungs Clear, Normal Breath Sounds. negative: Chest Tender, Respiratory Distress Cardiovascular: positive: Regular Rhythm, Regular Rate, S1, S2 Gastrointestinal/Abdominal: positive: Normal Bowel Sounds, Flat, Soft Extremity: positive: Normal Capillary Refill, Normal Inspection, Normal Range of Motion Integumentary: positive: Normal Color, Dry, Warm Neurologic: positive: business planner II-XII NML intact, Fully Oriented, Alert, Normal Mood/ Affect Moderate Sedation - Procedure Monitoring Vital Signs: Procedure Monitoring Vital Signs Temperature 97.9 F 10/13/18 04:12 Pulse Rate 84 10/13/18 04:12 Respiratory Rate 18 10/13/18 04:12 Blood Pressure 108/69 10/13/18 04:12 O2 Sat by Pulse Oximetry (%) 99 10/13/18 04:12 Medical Decision Making - Medical Decision Making 10/13/18 06:36 C spine XR normal; pt has muscle spasm of the right trapezius and she will be sent home with tylenol. She doesn't require mm relaxant at this time. *DC/Admit/Observation/Transfer Diagnosis at time of Disposition: Paraspinal muscle spasm - Discharge Dispostion Disposition: HOME Condition at time of disposition: Stable Decision to Admit order: No - Referrals - Patient Instructions Printed Discharge Instructions: Neck Sprain Print Language: UKRAINIAN - Post Discharge Activity
[2018-10-13] MEDS ORDERED: ACETAMINOPHEN 500 MG TABLET (FP) PO ONE (04:57)
[2018-10-13] MEDS ORDERED: ACETAMINOPHEN 325 MG TABLET (FP) ONE (05:13)
== END 2018-10-13 06:39 | disposition home or self-care (01) ==
LOC: JER 02:27
DX: M62.838 Other muscle spasm (principal)
CPT/HCPCS: 72050-TC-FY; 99282-25